=== PATIENT | male | born 1980 | race Caucasian/White ===

== ENCOUNTER 2020-05-17 16:23 | Emergency (ER) | payer BC, OTHER ==
--- NOTE | 2020-05-17 18:07 | ERPHSYRPT ---
- History of Present Illness Time Seen by Provider: 05/17/20 17:00 Source: patient Exam Limitations: no limitations Patient Subjective Stated Complaint: pt to ER for dizziness. pt states he was in an [facility] from saturday-saturday last week for seizure and "mini stroke". pt states he had to recieve blood for anemia. pt states he just hasnt felt right. Triage Nursing Assessment: pt A&Ox4. skin pwd. eyes PERRL Physician History: Patient is a 39-year-old male presents to our ED with complaints of dizziness. Patient states he has a history of diabetes, seizure and mini stroke. Patient advises staff that he was in [place] last week. Patient was apparently hospitalized for a episode of seizure and mini stroke. Patient was discharged on Saturday. Patient states that since then he has not felt well. Patient has had this ongoing mild dizziness. No associated chest pain or shortness of breath. No nausea vomiting or diaphoresis. Symptoms have been constant. No specific worsening or improving factors. Patient voices no other complaints concerns at this time. Timing/Duration: today Severity: moderate Modifying Factors: Improves With: nothing Associated Symptoms: nausea, vomiting, No shortness of breath Allergies/Adverse Reactions: No Known Drug Allergies Allergy (Unverified 05/17/20 17:08) Home Medications: Amlodipine Besylate 5 mg [Norvasc 5 mg] 5 mg PO DAILY 05/17/20 [History] Lorazepam 0.5 mg [Ativan 0.5 MG] 0.5 mg PO DAILY 05/17/20 [History] Zolpidem Tartrate 10 mg [Ambien 10 MG] 10 mg PO DAILY 05/17/20 [History] Hx Tetanus, Diphtheria Vaccination/Date Given: Yes Hx Influenza Vaccination/Date Given: Yes Hx Pneumococcal Vaccination/Date Given: No Travel Risk - International Travel Have you traveled outside of the country in past 3 weeks: No - Coronavirus Screening Are you exhibiting any of the following symptoms?: No Close contact with a COVID-19 positive Pt in past 14-21 Days: No - Review of Systems Constitutional: No Symptoms, No Fever, No Chills Eyes: No Symptoms Ears, Nose, & Throat: No Symptoms Respiratory: No Symptoms, No Cough, No Dyspnea Cardiac: No Symptoms, No Chest Pain, No Edema, No Syncope Abdominal/Gastrointestinal: No Symptoms, No Abdominal Pain, No Nausea, No Vomiting, No Diarrhea Genitourinary Symptoms: No Symptoms, No Dysuria Musculoskeletal: No Symptoms, No Back Pain, No Neck Pain Skin: No Symptoms, No Rash Neurological: No Symptoms, No Dizziness, No Focal Weakness, No Sensory Changes Psychological: No Symptoms Endocrine: No Symptoms Hematologic/Lymphatic: No Symptoms Immunological/Allergic: No Symptoms All Other Systems: Reviewed and Negative - Past Medical History Neurological History: Seizures, Stroke Cardiac History: Hypertension Endocrine Medical History: Diabetes Type II - Past Surgical History Past Surgical History: Yes Musculoskeletal: Orthopedic Surgery Other Surgical History: gastric bypass - Social History Smoking Status: Never smoker Exposure to second hand smoke: No Drug Use: none Patient Lives Alone: No - Nursing Vital Signs Nursing Vital Signs: Initial Vital Signs Pulse Rate 107 H 05/17/20 16:54 Respiratory Rate 17 05/17/20 16:54 Blood Pressure 181/109 05/17/20 16:54 O2 Sat by Pulse Oximetry 97 05/17/20 16:54 Pain Scale Pain Intensity 4 - Physical Exam General Appearance: no apparent distress, alert, other (Resting tachycardia.) Eye Exam: PERRL/EOMI, eyes nml inspection Ears, Nose, Throat Exam: normal ENT inspection, TMs normal, pharynx normal, moist mucous membranes Neck Exam: normal inspection, non-tender, supple, full range of motion Respiratory Exam: normal breath sounds, lungs clear, No respiratory distress Cardiovascular Exam: regular rate/rhythm, normal heart sounds, normal peripheral pulses Gastrointestinal/Abdomen Exam: soft, normal bowel sounds, No tenderness, No mass Back Exam: normal inspection, normal range of motion, No CVA tenderness, No vertebral tenderness Extremity Exam: normal inspection, normal range of motion, pelvis stable Neurologic Exam: alert, oriented x 3, cooperative, normal mood/affect, nml cerebellar function, nml station & gait, sensation nml, No motor deficits Skin Exam: normal color, warm, dry, No rash Lymphatic Exam: No adenopathy SpO2 Interpretation: normal SpO2: 96 O2 Delivery: Room Air - Course Nursing assessment & vital signs reviewed: Yes EKG Interpreted by Me: RATE (96), Sinus Rhythm, NORMAL AXIS, NORMAL INTERVALS - CT Exams Head CT Interpretation: Tele-radiologist Report (No acute pathology observed.) Ordered Tests: Active Orders 24 hr Category Date Time Status Crystal Calibrator STAT Care 05/17/20 18:02 Active EKG-ER Only STAT Care 05/17/20 18:01 Active IV Insertion STAT Care 05/17/20 18:01 Active Pulse Oximetry (ED) STAT Care 05/17/20 18:01 Active HEAD WITHOUT CONTRAST [CT] Stat Exams 05/17/20 18:03 Taken CBC W DIFF Stat Lab 05/17/20 18:18 Completed CMP Stat Lab 05/17/20 18:18 Completed CULTURE,URINE Stat Lab 05/17/20 18:23 Received ETHYL ALCOHOL Stat Lab 05/17/20 18:33 Completed MAGNESIUM Stat Lab 05/17/20 18:18 Completed SALICYLATE Stat Lab 05/17/20 18:33 Completed TROPONIN Q3H Lab 05/17/20 18:18 Completed TROPONIN Q3H Lab 05/17/20 21:15 Ordered TROPONIN Q3H Lab 05/18/20 00:15 Ordered TROPONIN Q3H Lab 05/18/20 03:15 Ordered TROPONIN Q3H Lab 05/18/20 06:15 Ordered UA W/RFX UR CULTURE Stat Lab 05/17/20 18:23 Completed Urine Triage Profile Stat Lab 05/17/20 Completed Lab/Rad Data: Laboratory Result Diagrams 05/17/20 18:18 05/17/20 18:18 Laboratory Results 05/17/20 05/17/20 05/17/20 Range/Units Unknown 18:33 18:23 WBC (4.0-10.5) K/mm3 RBC (4.1-5.6) M/mm3 Hgb (12.5-18.0) gm/dl Hct (42-50) % MCV (78-100) fl MCH (26-32) pg MCHC (32-36) g/dl RDW (11.5-14.0) % Plt Count (150-450) K/mm3 MPV (7.5-11.0) fl Gran % (36.0-66.0) % Eos # (Auto) (0-0.5) Absolute Lymphs (auto) (1.0-4.6) Absolute Monos (auto) (0.0-1.3) Lymphocytes % (24.0-44.0) % Monocytes % (0.0-12.0) % Eosinophils % (0.00-5.0) % Basophils % (0.0-0.4) % Absolute Granulocytes (1.4-6.9) Basophils # (0-0.4) Sodium (137-145) mmol/L Potassium (3.5-5.1) mmol/L Chloride (98-107) mmol/L Carbon Dioxide (22-30) mmol/L Anion Gap (5-15) MEQ/L BUN (9-20) mg/dL Creatinine (0.66-1.25) mg/dL Estimated GFR ML/MIN Glucose (74-106) mg/dL Calcium (8.4-10.2) mg/dL Magnesium (1.6-2.3) mg/dL Total Bilirubin (0.2-1.3) mg/dL AST (17-59) U/L ALT (0-50) U/L Alkaline Phosphatase (38-126) U/L Troponin I (0.000-0.034) ng/mL Serum Total Protein (6.3-8.2) g/dL Albumin (3.5-5.0) g/dL Urine Color STRAW (YELLOW) Urine Appearance CLEAR (CLEAR) Urine pH 5.0 (5-6) Ur Specific [place] 1.002 (1.005-1.025) Urine Protein 30 (Negative) Urine Ketones NEGATIVE (NEGATIVE) Urine Blood SMALL (0-5) Facundo/ul Urine Nitrite NEGATIVE (NEGATIVE) Urine Bilirubin NEGATIVE (NEGATIVE) Urine Urobilinogen NEGATIVE (0-1) mg/dL Ur Leukocyte Esterase NEGATIVE (NEGATIVE) Urine WBC (Auto) NONE SEEN (0-5) /HPF Urine RBC (Auto) NONE SEEN (0-2) /HPF U Epithel Cells (Auto) NONE (FEW) /HPF Urine Bacteria (Auto) NONE SEEN (NEGATIVE) /HPF Urine Culture Reflexed YES (NO) Urine Glucose NEGATIVE (NEGATIVE) mg/dL Salicylates 1.0 L (2-20) mg/dL Urine Opiates Level NEGATIVE (NEGATIVE) Ur Methadone NEGATIVE (NEGATIVE) Urine Barbiturates NEGATIVE (NEGATIVE) Ur Phencyclidine (PCP) NEGATIVE (NEGATIVE) Urine Amphetamine NEGATIVE (NEGATIVE) U Benzodiazepine Level NEGATIVE (NEGATIVE) Urine Cocaine NEGATIVE (NEGATIVE) Urine Marijuana (THC) NEGATIVE (NEGATIVE) Ethyl Alcohol 288 H (0-10) mg/dL Slides for Path Review 05/17/20 05/17/20 05/17/20 Range/Units 18:18 18:18 18:18 WBC 4.4 (4.0-10.5) K/mm3 RBC 5.21 (4.1-5.6) M/mm3 Hgb 10.2 L (12.5-18.0) gm/dl Hct 32.6 L (42-50) % MCV 62.6 L (78-100) fl MCH 19.6 L (26-32) pg MCHC 31.3 L (32-36) g/dl RDW 22.4 H (11.5-14.0) % Plt Count 396 (150-450) K/mm3 MPV 9.1 (7.5-11.0) fl Gran % 63.7 (36.0-66.0) % Eos # (Auto) 0.02 (0-0.5) Absolute Lymphs (auto) 1.15 (1.0-4.6) Absolute Monos (auto) 0.35 (0.0-1.3) Lymphocytes % 26.2 (24.0-44.0) % Monocytes % 8.0 (0.0-12.0) % Eosinophils % 0.5 (0.00-5.0) % Basophils % 1.6 (0.0-0.4) % Absolute Granulocytes 2.80 (1.4-6.9) Basophils # 0.07 (0-0.4) Sodium 133 L (137-145) mmol/L Potassium 4.0 (3.5-5.1) mmol/L Chloride 94 L (98-107) mmol/L Carbon Dioxide 23 (22-30) mmol/L Anion Gap 19.4 H (5-15) MEQ/L BUN 4 L (9-20) mg/dL Creatinine 0.67 (0.66-1.25) mg/dL Estimated GFR > 60.0 ML/MIN Glucose 138 H (74-106) mg/dL Calcium 9.1 (8.4-10.2) mg/dL Magnesium 2.1 (1.6-2.3) mg/dL Total Bilirubin 0.60 (0.2-1.3) mg/dL AST 68 H (17-59) U/L ALT 34 (0-50) U/L Alkaline Phosphatase 85 (38-126) U/L Troponin I < 0.012 (0.000-0.034) ng/mL Serum Total Protein 8.3 H (6.3-8.2) g/dL Albumin 4.6 (3.5-5.0) g/dL Urine Color (YELLOW) Urine Appearance (CLEAR) Urine pH (5-6) Ur Specific [place] (1.005-1.025) Urine Protein (Negative) Urine Ketones (NEGATIVE) Urine Blood (0-5) Facundo/ul Urine Nitrite (NEGATIVE) Urine Bilirubin (NEGATIVE) Urine Urobilinogen (0-1) mg/dL Ur Leukocyte Esterase (NEGATIVE) Urine WBC (Auto) (0-5) /HPF Urine RBC (Auto) (0-2) /HPF U Epithel Cells (Auto) (FEW) /HPF Urine Bacteria (Auto) (NEGATIVE) /HPF Urine Culture Reflexed (NO) Urine Glucose (NEGATIVE) mg/dL Salicylates (2-20) mg/dL Urine Opiates Level (NEGATIVE) Ur Methadone (NEGATIVE) Urine Barbiturates (NEGATIVE) Ur Phencyclidine (PCP) (NEGATIVE) Urine Amphetamine (NEGATIVE) U Benzodiazepine Level (NEGATIVE) Urine Cocaine (NEGATIVE) Urine Marijuana (THC) (NEGATIVE) Ethyl Alcohol (0-10) mg/dL Slides for Path Review YES - Progress Progress: improved Progress Note: 05/17/20 20:32 Patient reassessed. He states he feels well. He continues to display resting tachycardia. Patient's alcohol level is 288. Patient admitted that he is an alcoholic. Patient drinks every day. The seizure described previously was likely alcohol withdrawal seizure. We advised admission. Patient declined. Patient states he has to work in the morning. Anion gap acidosis observed on blood work-up. Patient is of sound mind. Patient is appropriate to make informed and independent medical decisions. Patient has decided to leave AGAINST MEDICAL ADVICE. Patient understands that leaving it medical advice later the potential for delayed diagnosis, worsening of symptoms, increased risk of morbidity, mortality, short and long-term disability, in spite of his risks patient decided to leave AGAINST MEDICAL ADVICE. An AMA form was signed accordingly. Patient understand that he may return to our ED at any point for further evaluation treatment and admission as indicated. Patient agrees to follow-up with his primary care doctor within 48 hours for reevaluation. Counseled pt/family regarding: lab results, diagnosis, need for follow-up, rad results - Departure Departure Disposition: AMA Clinical Impression: Alcohol withdrawal, High anion gap metabolic acidosis, Microcytic anemia Condition: Stable Critical Care Time: No Referrals: KENNETH GENAO [Primary Care Provider] - Additional Instructions: Discharge/Care Plan [id number] Shelley was seen on 05/17/20 in the Emergency Room. The patient was counseled regarding Diagnosis,Lab results, Imaging studies, need for follow up and when to return to the Emergency Room. Prescriptions given: Discharge Note I have spoken with the patient and/or caregivers. I have explained the patient's condition, diagnosis and treatment plan based on the information available to me at this time. I have answered the patient's and/or caregiver's questions and addressed any concerns. The patient and/or caregivers have as good understanding of the patient's diagnosis, condition and treatment plan as can be expected at this point. The vital signs have been stable. The patient's condition is stable and appropriate for discharge from the emergency department. The patient will pursue further outpatient evaluation with the primary care physician or other designated or consulting physician as outlined in the discharge instructions. The patient and/or caregivers are agreeable to this plan of care and follow-up instructions have been explained in detail. The patient and/or caregivers have received these instruction. The patient/and or caregivers are aware that any significant change in condition or worsening of symptoms should prompt an immediate return to this or the closest emergency department or call 911.
[2020-05-17 18:23] LABS: BASOPHIL % 1.6 % (0.0-0.4); Basophil (Absolute #) 0.07 (0-0.4); Eosinophil % 0.5 % (0.00-5.0); Eosinophil (Absolute #) 0.02 (0-0.5); Hematocrit 32.6 % (42-50); Hemoglobin 10.2 gm/dl (12.5-18.0); Lymphocyte (Absolute #) 1.15 (1.0-4.6); Lymphocytes % 26.2 % (24.0-44.0); Mean Cell Volume 62.6 fl (78-100); Mean Corpuscular Hemoglobin 19.6 pg (26-32); Mean Corpuscular Hgb Concent. 31.3 g/dl (32-36); Mean Platelet Volume 9.1 fl (7.5-11.0); Monocyte (Absolute #) 0.35 (0.0-1.3); Neutrophil % 63.7 % (36.0-66.0); Platelet Count 396 K/mm3 (150-450); Red Blood Count 5.21 M/mm3 (4.1-5.6); Red Cell Distribution Width 22.4 % (11.5-14.0); White Blood Count 4.4 K/mm3 (4.0-10.5)
[2020-05-17 18:27] LABS: ALBUMIN 4.6 g/dL (3.5-5.0); ALKALINE PHOSPHATASE 85 U/L (38-126); ANION GAP 19.4 MEQ/L (5-15); BLOOD UREA NITROGEN 4 mg/dL (9-20); CHLORIDE 94 mmol/L (98-107); Calcium 9.1 mg/dL (8.4-10.2); Carbon Dioxide 23 mmol/L (22-30); Creatinine 1 0.67 mg/dL (0.66-1.25); Glucose 138 mg/dL (74-106); MAGNESIUM 2.1 mg/dL (1.6-2.3); SGOT/AST 68 U/L (17-59); SGPT/ALT 34 U/L (0-50); SODIUM 133 mmol/L (137-145); Total Protein 8.3 g/dL (6.3-8.2)
[2020-05-17 18:41] LABS: Appearance CLEAR (CLEAR); Bilirubin NEGATIVE (NEGATIVE); Blood SMALL Ery/ul (0-5); Glucose NEGATIVE (NEGATIVE); Ketones NEGATIVE (NEGATIVE); Leukocyte Esterase NEGATIVE (NEGATIVE); Nitrite NEGATIVE (NEGATIVE); Protein,Urine Dip 30 (Negative); Specific Gravity 1.002 (1.005-1.025); Urobilinogen NEGATIVE mg/dL (0-1)
[2020-05-17 18:50] LABS: Bacteria NONE SEEN /HPF (NEGATIVE); RBC NONE SEEN /HPF (0-2); WBC NONE SEEN /HPF (0-5)
[2020-05-17 18:53] LABS: Amphetamine,Urine NEGATIVE (NEGATIVE); Barbiturate,Urine NEGATIVE (NEGATIVE); Benzodiazepine,Urine NEGATIVE (NEGATIVE); Cocaine,Urine NEGATIVE (NEGATIVE); Methadone,Urine NEGATIVE (NEGATIVE); Opiate,Urine NEGATIVE (NEGATIVE); PCP,Urine NEGATIVE (NEGATIVE); THC,Urine NEGATIVE (NEGATIVE)
[2020-05-17 20:08] LABS: Slide Review 1 YES
[2020-05-17 20:44] VITALS: BP 176/117; PULSE 110; O2SAT 100
--- NOTE | 2020-05-18 08:42 | XRAY ---
Exam: CT of the head without IV contrast from 05/17/2020. CTDI: 53.92 mGy Comparison: None. Indication: 39-year-old male with fatigue and dizziness for 2 weeks, no known injury. Technique: Non-IV contrast axial images were obtained through the brain. Reconstructed coronal and sagittal images were created and reviewed. Findings: The ventricles are of unremarkable size and shape. No focal mass effect or midline shift is seen. No acute intracranial bleed or abnormal extra-axial fluid collection is seen. The patel matter-white matter junctions appear unremarkable. No low attenuation cortical infarct is seen. The cortical sulci and basilar cisterns appear unremarkable. The calvarium of the skull reveals no fracture or other focal calvarial lesion. There is some minor mucoperiosteal thickening within the posterior aspect of the left maxillary sinus. The superior aspect of a small soft tissue density has been partially included on the most inferior image of the right maxillary sinus. This could represent a small polyp or retention cyst. It is incompletely evaluated. No air-fluid levels are seen. The mastoid air cells are clear without effusion. The orbits reveal no significant abnormality. Impression: 1. No acute intracranial abnormality is seen. 2. Minimal chronic bilateral maxillary sinus disease. No air-fluid levels are seen.
== END 2020-05-17 20:42 | disposition home or self-care (01) ==
LOC: ED 16:23
DX: F10.239 Alcohol dependence with withdrawal, unspecified (principal); E87.2 Acidosis; D50.9 Iron deficiency anemia, unspecified
CPT/HCPCS: 36000; 36415; 70450; 80053; 80307; 81001; 83735; 84484; 85025; 87086; 93005; 93041; 94760; 99284; G0480